=== PATIENT | male | born 1990 | race Caucasian/White ===

== ENCOUNTER 2021-12-30 14:54 | Inpatient (IN) ==
[2021-12-30] MEDS ORDERED: Naloxone 0.4 MG/ML INJ IVP PRN (16:42)
[2021-12-30] MEDS ORDERED: *HR* HYDROcodone/Acet 5/325 mg TABLET PO PRN (16:42)
[2021-12-30] MEDS ORDERED: 0.9 % Sodium Chloride 1,000 ML IVC SCH (16:45)
[2021-12-30] MEDS ORDERED: 0.9 % Sodium Chloride 1,000 ML IVC ONE (17:58)
[2021-12-30] MEDS: Nicotine 2 MG GUM BC SCH ×3 (18:18→21:52)
[2021-12-30] MEDS ORDERED: Vancomycin 2,000 MG/520 ML IV.SOLN IVPB SCH (20:00)
[2021-12-30] MEDS ORDERED: Fluconazole 150 MG TABLET PO ONE (20:03)
[2021-12-30] MEDS: *HR* Heparin 5,000 UNIT/ML VIAL SQ SCH (20:57)
[2021-12-30] MEDS: Lactobacillus 1 EACH CAP.SPRINK PO SCH (20:58)
[2021-12-30] MEDS ORDERED: Melatonin 3 MG TABLET PO PRN (21:00)
[2021-12-30] MEDS ORDERED: Vancomycin 2,000 MG/520 ML IV.SOLN IVPB ONE (22:00)
[2021-12-31] MEDS: Acetaminophen 325 MG TABLET PO PRN ×2 (04:31→14:05)
[2021-12-31] MEDS: Vancomycin 1,750 MG/517.5 ML IV.SOLN IVPB SCH ×3 (06:02→23:41)
[2021-12-31] MEDS: Nicotine 2 MG GUM BC SCH ×8 (06:04→20:42)
[2021-12-31] MEDS: *HR* Heparin 5,000 UNIT/ML VIAL SQ SCH ×3 (06:04→20:53)
[2021-12-31] MEDS: Lactobacillus 1 EACH CAP.SPRINK PO SCH ×2 (08:11→20:52)
[2021-12-31] MEDS: Nicotine 14 MG PATCH.TD24 TD SCH (08:11)
[2021-12-31] MEDS: Multivit/Ca/Min/Fe/FA 1 TAB TABLET PO SCH (08:11)
[2021-12-31] MEDS: levoFLOXacin 750 MG/150 ML 750 MG/150 ML BAG IVPB SCH (08:11)
[2021-12-31 09:52] LABS: Basophils # 0.1 K/mcL (0.0-0.2); Basophils % 0.3 %; Eosinophils % 0.2 %; Hematocrit 38.5 % (37.5-50.1); Immature Granulocytes % 1.1 % (0-4); Lymphocytes # 1.1 K/mcL (0.6-4.6); Lymphocytes % 5.6 %; Mean Corpuscular HGB Conc 31.2 g/dL (31.6-35.5); Mean Corpuscular Hemoglobin 27.4 pg (28.0-33.3); Mean Corpuscular Volume 87.9 fL (83.0-100.0); Mean Platelet Volume 10.5 fL (9.4-12.4); Monocytes # 0.9 K/mcL (0.0-1.3); Monocytes % 4.6 %; Neutrophils # 17.3 K/mcL (1.6-8.9); Platelet Count 178 K/mcL (140-400); Red Blood Count 4.38 M/mcL (4.19-5.50); Segmented Neutrophils % 88.2 %; White Blood Count 19.6 K/mcL (4.3-11.1)
[2021-12-31 10:04] LABS: INR 1.8; Prothrombin Time 19.9 Seconds (9.4-12.1)
[2021-12-31 10:07] LABS: Activated Partial Thrombo Time 37.1 Seconds (26.0-36.0)
[2021-12-31 10:11] LABS: Alanine Aminotransferase 25 Units/L (7-52); Albumin 3.4 g/dL (3.5-5.7); Albumin/Globulin Ratio 1.1 (1.1-2.2); Alkaline Phosphatase 44 Units/L (34-104); Aspartate Amino Transferase 26 Units/L (13-39); BUN/Creatinine Ratio 12 (6-26); Bilirubin,Total 1.2 mg/dL (0.3-1.0); Blood Urea Nitrogen 11 mg/dL (6-20); Carbon Dioxide 27 mEq/L (23-29); Chloride 101 mEq/L (98-107); Globulin 3.1 g/dL (2.4-3.5); Glucose 107 mg/dL (70-105); Magnesium 1.4 mg/dL (1.6-2.6); Osmolality,Calculated 278 (280-300); Phosphorous 2.6 mg/dL (2.7-4.5); Potassium 3.5 mEq/L (3.5-5.1); Sodium 134 mEq/L (136-145); Total Protein 6.5 g/dL (6.4-8.9); eGFR For African Americans > 60 (> 60); eGFR For Non-African Americans > 60 (> 60)
[2021-12-31] MEDS: Magnesium Oxide 400 MG TABLET PO SCH (20:52)
[2022-01-01] MEDS: Vancomycin 1,750 MG/517.5 ML IV.SOLN IVPB SCH ×3 (05:24→21:35)
[2022-01-01] MEDS: *HR* Heparin 5,000 UNIT/ML VIAL SQ SCH ×3 (05:24→21:35)
[2022-01-01] MEDS: Nicotine 2 MG GUM BC SCH ×6 (05:25→20:54)
[2022-01-01] MEDS: Magnesium Oxide 400 MG TABLET PO SCH ×2 (08:18→21:34)
[2022-01-01] MEDS: Multivit/Ca/Min/Fe/FA 1 TAB TABLET PO SCH (08:19)
[2022-01-01] MEDS: Lactobacillus 1 EACH CAP.SPRINK PO SCH ×2 (08:19→21:34)
[2022-01-01] MEDS: metroNIDAZOLE 500 MG TABLET PO SCH ×3 (08:19→21:34)
[2022-01-01] MEDS: Nicotine 14 MG PATCH.TD24 TD SCH (08:23)
[2022-01-01 09:36] LABS: Hematocrit 36.9 % (37.5-50.1); Hemoglobin 11.7 g/dL (12.9-16.9); Mean Corpuscular HGB Conc 31.7 g/dL (31.6-35.5); Mean Corpuscular Hemoglobin 28.2 pg (28.0-33.3); Mean Corpuscular Volume 88.9 fL (83.0-100.0); Mean Platelet Volume 10.6 fL (9.4-12.4); Platelet Count 155 K/mcL (140-400); Red Blood Count 4.15 M/mcL (4.19-5.50); Red Cell Distribution Width 15.9 % (11.5-14.5); White Blood Count 12.5 K/mcL (4.3-11.1)
[2022-01-01 09:51] LABS: Magnesium 1.8 mg/dL (1.6-2.6); Phosphorous 1.9 mg/dL (2.7-4.5)
[2022-01-01 09:55] LABS: BUN/Creatinine Ratio 9 (6-26); Blood Urea Nitrogen 7 mg/dL (6-20); Calcium 8.3 mg/dL (8.6-10.3); Carbon Dioxide 28 mEq/L (23-29); Chloride 100 mEq/L (98-107); Glucose 103 mg/dL (70-105); Osmolality,Calculated 276 (280-300); Potassium 3.3 mEq/L (3.5-5.1); Sodium 134 mEq/L (136-145); eGFR For African Americans > 60 (> 60); eGFR For Non-African Americans > 60 (> 60)
[2022-01-01 10:04] LABS: Lymphocytes # 1.8 K/mcL (0.6-4.6); Monocytes # 0.5 K/mcL (0.0-1.3); Neutrophils # 10.3 K/mcL (1.6-8.9); Platelet Estimate Normal (Normal); Reactive Lymphocytes Present (Not Present)
[2022-01-01] MEDS: levoFLOXacin 750 MG/150 ML 750 MG/150 ML BAG IVPB SCH (12:02)
[2022-01-02] MEDS: Nicotine 2 MG GUM BC SCH ×8 (01:58→22:11)
[2022-01-02] MEDS: Nicotine 14 MG PATCH.TD24 TD SCH ×2 (03:34→08:44)
[2022-01-02] MEDS: *HR* Heparin 5,000 UNIT/ML VIAL SQ SCH ×3 (06:38→22:19)
[2022-01-02] MEDS: Vancomycin 1,750 MG/517.5 ML IV.SOLN IVPB SCH ×3 (06:58→22:19)
[2022-01-02] MEDS: Lactobacillus 1 EACH CAP.SPRINK PO SCH ×2 (08:43→22:10)
[2022-01-02] MEDS: Magnesium Oxide 400 MG TABLET PO SCH ×2 (08:43→22:10)
[2022-01-02] MEDS: metroNIDAZOLE 500 MG TABLET PO SCH ×3 (08:43→22:11)
[2022-01-02] MEDS: Multivit/Ca/Min/Fe/FA 1 TAB TABLET PO SCH (08:43)
[2022-01-02 09:30] LABS: Basophils # 0.1 K/mcL (0.0-0.2); Basophils % 0.6 %; Eosinophils # 0.1 K/mcL (0.0-0.6); Eosinophils % 1.3 %; Hematocrit 38.8 % (37.5-50.1); Immature Granulocytes % 1.3 % (0-4); Lymphocytes # 1.5 K/mcL (0.6-4.6); Lymphocytes % 15.5 %; Mean Corpuscular HGB Conc 30.9 g/dL (31.6-35.5); Mean Corpuscular Hemoglobin 27.5 pg (28.0-33.3); Mean Corpuscular Volume 88.8 fL (83.0-100.0); Mean Platelet Volume 10.5 fL (9.4-12.4); Monocytes # 0.9 K/mcL (0.0-1.3); Monocytes % 9.5 %; Neutrophils # 7.1 K/mcL (1.6-8.9); Platelet Count 160 K/mcL (140-400); Red Blood Count 4.37 M/mcL (4.19-5.50); Segmented Neutrophils % 71.8 %; White Blood Count 9.9 K/mcL (4.3-11.1)
[2022-01-02 09:52] LABS: BUN/Creatinine Ratio 10 (6-26); Blood Urea Nitrogen 6 mg/dL (6-20); Calcium 8.5 mg/dL (8.6-10.3); Carbon Dioxide 24 mEq/L (23-29); Chloride 103 mEq/L (98-107); Glucose 116 mg/dL (70-105); Osmolality,Calculated 279 (280-300); Potassium 3.7 mEq/L (3.5-5.1); Sodium 135 mEq/L (136-145); eGFR For African Americans > 60 (> 60); eGFR For Non-African Americans > 60 (> 60)
[2022-01-02] MEDS: levoFLOXacin 750 MG/150 ML 750 MG/150 ML BAG IVPB SCH (10:04)
[2022-01-03 05:36] LABS: Basophils # 0.1 K/mcL (0.0-0.2); Basophils % 0.9 %; Eosinophils # 0.2 K/mcL (0.0-0.6); Eosinophils % 1.9 %; Hemoglobin 11.4 g/dL (12.9-16.9); Immature Granulocytes % 3.9 % (0-4); Lymphocytes # 2.2 K/mcL (0.6-4.6); Lymphocytes % 19.2 %; Mean Corpuscular HGB Conc 30.8 g/dL (31.6-35.5); Mean Corpuscular Volume 87.7 fL (83.0-100.0); Mean Platelet Volume 10.3 fL (9.4-12.4); Monocytes # 1.5 K/mcL (0.0-1.3); Monocytes % 12.8 %; Platelet Count 198 K/mcL (140-400); Red Blood Count 4.22 M/mcL (4.19-5.50); Red Cell Distribution Width 15.9 % (11.5-14.5); Segmented Neutrophils % 61.3 %; White Blood Count 11.5 K/mcL (4.3-11.1)
[2022-01-03 06:00] LABS: BUN/Creatinine Ratio 11 (6-26); Blood Urea Nitrogen 7 mg/dL (6-20); Calcium 8.6 mg/dL (8.6-10.3); Carbon Dioxide 25 mEq/L (23-29); Chloride 104 mEq/L (98-107); Glucose 103 mg/dL (70-105); Osmolality,Calculated 284 (280-300); Phosphorous 4.1 mg/dL (2.7-4.5); Potassium 3.7 mEq/L (3.5-5.1); Sodium 138 mEq/L (136-145); eGFR For African Americans > 60 (> 60); eGFR For Non-African Americans > 60 (> 60)
[2022-01-03] MEDS: *HR* Heparin 5,000 UNIT/ML VIAL SQ SCH ×3 (06:14→21:46)
[2022-01-03] MEDS: Nicotine 2 MG GUM BC SCH ×3 (06:15→14:56)
[2022-01-03] MEDS: Vancomycin 1,750 MG/517.5 ML IV.SOLN IVPB SCH ×3 (06:15→21:47)
[2022-01-03] MEDS: Lactobacillus 1 EACH CAP.SPRINK PO SCH ×2 (09:06→21:46)
[2022-01-03] MEDS: Magnesium Oxide 400 MG TABLET PO SCH ×2 (09:06→21:46)
[2022-01-03] MEDS: Multivit/Ca/Min/Fe/FA 1 TAB TABLET PO SCH (09:06)
[2022-01-03] MEDS: metroNIDAZOLE 500 MG TABLET PO SCH ×3 (09:06→21:46)
[2022-01-03] MEDS: levoFLOXacin 750 MG/150 ML 750 MG/150 ML BAG IVPB SCH (09:07)
[2022-01-03] MEDS: Nicotine 14 MG PATCH.TD24 TD SCH (10:15)
[2022-01-04] MEDS: Nicotine 2 MG GUM BC SCH ×4 (02:36→07:41)
[2022-01-04] MEDS: Vancomycin 1,750 MG/517.5 ML IV.SOLN IVPB SCH (05:16)
[2022-01-04] MEDS: *HR* Heparin 5,000 UNIT/ML VIAL SQ SCH (05:16)
[2022-01-04] MEDS: Multivit/Ca/Min/Fe/FA 1 TAB TABLET PO SCH (07:39)
[2022-01-04] MEDS: metroNIDAZOLE 500 MG TABLET PO SCH (07:39)
[2022-01-04] MEDS: Nicotine 14 MG PATCH.TD24 TD SCH (07:39)
[2022-01-04] MEDS: Magnesium Oxide 400 MG TABLET PO SCH (07:39)
[2022-01-04] MEDS: Lactobacillus 1 EACH CAP.SPRINK PO SCH (07:39)
[2022-01-04] MEDS: levoFLOXacin 750 MG/150 ML 750 MG/150 ML BAG IVPB SCH (07:40)
[2022-01-04 08:12] LABS: Hematocrit 37.4 % (37.5-50.1); Hemoglobin 11.7 g/dL (12.9-16.9); Mean Corpuscular HGB Conc 31.3 g/dL (31.6-35.5); Mean Corpuscular Hemoglobin 27.7 pg (28.0-33.3); Mean Corpuscular Volume 88.6 fL (83.0-100.0); Mean Platelet Volume 9.8 fL (9.4-12.4); Monocytes # 1.3 K/mcL (0.0-1.3); Platelet Count 203 K/mcL (140-400); Red Blood Count 4.22 M/mcL (4.19-5.50); Red Cell Distribution Width 15.9 % (11.5-14.5); White Blood Count 12.8 K/mcL (4.3-11.1)
[2022-01-04 08:28] VITALS: BP 148/78; PULSE 95; TEMP 97.8; O2SAT 92
[2022-01-04 08:32] LABS: BUN/Creatinine Ratio 11 (6-26); Blood Urea Nitrogen 7 mg/dL (6-20); Calcium 8.6 mg/dL (8.6-10.3); Carbon Dioxide 29 mEq/L (23-29); Chloride 103 mEq/L (98-107); Glucose 102 mg/dL (70-105); Osmolality,Calculated 286 (280-300); Potassium 3.9 mEq/L (3.5-5.1); Sodium 139 mEq/L (136-145); eGFR For African Americans > 60 (> 60); eGFR For Non-African Americans > 60 (> 60)
[2022-01-04 10:14] LABS: Eosinophils # 0.5 K/mcL (0.0-0.6); Lymphocytes # 1.8 K/mcL (0.6-4.6); Neutrophils # 8.7 K/mcL (1.6-8.9)
[2022-01-04 10:16] LABS: Platelet Estimate Normal (Normal)
== END 2022-01-04 11:25 | disposition home or self-care (01) | DRG 872 ==
LOC: 3ANU → SUATTDRO 15:57
PROVIDERS: ADMIT Internal Medicine; ATTEND Internal Medicine